=== PATIENT | female | born 1990 | race Caucasian/White ===

== ENCOUNTER 2017-07-01 16:46 | Emergency (ER) | payer OTHER ==
[~2017-07-01] VITALS: Ht 180.3 cm; Wt 122.7 kg
[2017-07-01 17:48] LABS: HEMATOCRIT 42.6 % (36.0-46.0); MCH 27.2 PG (29.0-34.0); MCHC 33.1 G/DL (30.0-36.0); MCV 82.2 FL (83-99); MEAN PLAT.VOLUME 10.7 uM^3 (9.5-12.4); PLATELET COUNT 219 K/uL (156-360); RBC DIS.WIDTH-CV 13.2 % (11.8-14.6); RBC DIS.WIDTH-SD 39.2 % (39-53); RED BLOOD COUNT 5.18 M/uL (3.80-5.20); WHITE BLOOD COUNT 9.4 K/uL (4.1-10.2)
[2017-07-01 18:02] LABS: CHLORIDE 107 mEq/L (99-109); POTASSIUM 4.1 mEq/L (3.7-5.4); SODIUM 140 mEq/L (136-147)
[2017-07-01 18:04] LABS: GLUCOSE 87 mg/dL (70-99)
[2017-07-01 18:05] LABS: ANION GAP 8 MEQ/L (2-14)
[2017-07-01 18:06] LABS: TOTAL BILIRUBIN < 0.1 mg/dL (0.0-1.0)
[2017-07-01 18:08] LABS: ALKALINE PHOSPHATASE 88 IU/L (3-129)
[2017-07-01 18:09] LABS: QUANTITATIVE HCG < 4.0 MIU/ML; UREA NITROGEN (BUN) 9 mg/dL (9-23)
[2017-07-01 18:16] LABS: GFR ESTIMATE (CALCULATED) > 59 mL/min/
[2017-07-01 18:50] LABS: ADD MIUA? YES; BILIRUBIN NEGATIVE; BLOOD MODERATE; COLOR STRAW ((YELLOW)); GLUCOSE (STRIP) NEGATIVE; KETONES 5; LEUKOCYTES NEGATIVE; NITRITE NEGATIVE; PROTEIN (STRIP) NEGATIVE; SPECIFIC GRAVITY 1.006 (1.000-1.030); UROBILINOGEN 0.2 MG/DL (0.2-1.0)
[2017-07-01 18:58] LABS: BACTERIA RARE /HPF; EPITHELIAL CELLS RARE /HPF; MUCUS NONE SEEN /LPF; RED BLOOD CELLS 0-5 /HPF (0-5); UCUL ADDED? NO; WHITE BLOOD CELLS 0-5 /HPF (0-5)
[2017-07-01] MEDS ORDERED: BENTYL10 MG PO (20:22)
[2017-07-01] MEDS ORDERED: ZOFRAN ODT4 MG PO (20:22)
[2017-07-01 20:41] VITALS: BP 130/92
== END 2017-07-01 20:43 | disposition home or self-care (01) ==
LOC: EME 16:46
DX: R10.32 Left lower quadrant pain (principal)
CPT/HCPCS: 74177; 80053; 81003; 84702; 85027; 99281; 99284; J7030

== ENCOUNTER 2017-11-20 21:05 | Emergency (ER) | payer OTHER ==
[~2017-11-20] VITALS: Ht 180.3 cm; Wt 121.5 kg
[~2017-11-20 21:05] MED LIST: BENTYL10 MG PO; ZOFRAN ODT4 MG PO
[2017-11-20] MEDS ORDERED: MOTRIN800 MG PO (22:49)
[2017-11-20 23:14] VITALS: BP 142/79
== END 2017-11-20 23:19 | disposition home or self-care (01) ==
LOC: EME 21:05
DX: S93.402A Sprain of unspecified ligament of left ankle, initial encounter (principal); S50.10XA Contusion of unspecified forearm, initial encounter; X50.1XXA Overexertion from prolonged static or awkward postures, initial encounter; W01.0XXA Fall on same level from slipping, tripping and stumbling without subsequent striking against object, initial encounter; Y93.02 Activity, running
CPT/HCPCS: 73090; 73610; 99281; 99284; J1885